=== PATIENT | female | born 1945 | race Caucasian/White ===

== ENCOUNTER 2023-11-25 20:33 | Inpatient (IN) | payer MEDICARE ==
[~2023-11-25] VITALS: Ht 157.5 cm; Wt 54.4 kg
[2023-11-25 22:01] LABS: BASOPHILS # (AUTO) 0.1 K/uL (0.0-0.2); BASOPHILS % (AUTO) 0.5 % (0.0-2.0); EOSINOPHILS # (AUTO) 0.1 K/uL (0.0-0.7); HEMATOCRIT 36 % (33-45); HEMOGLOBIN 11.8 g/dL (11.5-14.8); LYMPHOCYTES # (AUTO) 1.2 K/uL (0.8-4.8); LYMPHOCYTES % (AUTO) 10.9 % (20.0-44.0); MEAN CORPUSCULAR HEMOGLOBIN 31 PG (26.0-33.0); MEAN CORPUSCULAR HGB CONC 33 g/dl (31.0-36.0); MEAN CORPUSCULAR VOLUME 95 fL (82-100); MONOCYTES # (AUTO) 0.8 K/uL (0.1-1.30); MONOCYTES % (AUTO) 7.3 % (2.0-12.0); NEUTROPHILS # (AUTO) 8.9 K/uL (1.8-8.9); NEUTROPHILS % (AUTO) 80.3 % (43.0-81.0); PLATELET COUNT (AUTO) 316 K/uL (150-450); RED BLOOD CELL COUNT(AUTO) 3.84 MIL/uL (4.0-5.2); RED CELL DISTRIBUTION WIDTH 13.5 % (11.5-15.0); WHITE BLOOD COUNT (AUTO) 11.1 K/uL (4.3-11.0)
[2023-11-25 22:12] LABS: CALCIUM, SERUM 9.2 mg/dL (8.5-10.1); CARBON DIOXIDE 21 mmol/L (21-32); CHLORIDE 104 mmol/L (98-107); CREATININE 1.3 mg/dL (0.6-1.3); GLUCOSE 99 mg/dL (74-106); POTASSIUM 4.5 mmol/L (3.5-5.1); SODIUM SERUM 135 mmol/L (136-145); UREA NITROGEN, BLOOD 37 mg/dL (7-18)
[2023-11-25 22:18] LABS: ALANINE AMINOTRANSFERASE 48 U/L (12-78); ALBUMIN 3.9 g/dL (3.4-5.0); ALKALINE PHOSPHATASE 112 U/L (46-116); ASPARTATE AMINOTRANSFERASE 34 U/L (15-37); BILIRUBIN,DIRECT 0.1 mg/dL (0.0-0.2); BILIRUBIN,TOTAL 0.2 mg/dL (0.2-1.0); TOTAL PROTEIN, SERUM 7.8 g/dL (6.4-8.2)
[2023-11-26] VITALS (8 sets, daily range): BP systolic 129–170; BP diastolic 58–105; TEMP 97.5–98.6; O2SAT 94–99
[2023-11-26] MEDS ORDERED: MAGNESIUM HYDROXIDE 30 ML UDC PO PRN
[2023-11-26] MEDS ORDERED: ACETAMINOPHEN 325 MG TABLET PO PRN
[2023-11-26] MEDS ORDERED: ONDANSETRON HCL/PF 4 MG/2 ML VIAL IVP PRN
[2023-11-26] MEDS ORDERED: MAG HYDROX/AL HYDROX/SIMETH 30 ML UDC PO PRN
[2023-11-26] MEDS ORDERED: Z GUARD REMEDY 4 OZ OINT TP PRN
[2023-11-26] MEDS ORDERED: TEMAZEPAM 15 MG CAPSULE PO PRN
[2023-11-26] MEDS ORDERED: HYDROCODONE/APAP 10/325MG TABLET PO PRN
[2023-11-26] MEDS: IV NS 0.9% 1,000 ML IV PRN ×2 (04:58→17:51)
[2023-11-26 06:52] LABS: BASOPHILS % (AUTO) 0.5 % (0.0-2.0); EOSINOPHILS # (AUTO) 0.1 K/uL (0.0-0.7); EOSINOPHILS % (AUTO) 1.2 % (0.0-6.0); HEMATOCRIT 29 % (33-45); HEMOGLOBIN 9.9 g/dL (11.5-14.8); LYMPHOCYTES # (AUTO) 1.2 K/uL (0.8-4.8); LYMPHOCYTES % (AUTO) 12.2 % (20.0-44.0); MEAN CORPUSCULAR HEMOGLOBIN 32 PG (26.0-33.0); MEAN CORPUSCULAR HGB CONC 34 g/dl (31.0-36.0); MEAN CORPUSCULAR VOLUME 94 fL (82-100); MONOCYTES # (AUTO) 1.2 K/uL (0.1-1.30); MONOCYTES % (AUTO) 12.2 % (2.0-12.0); NEUTROPHILS # (AUTO) 7.2 K/uL (1.8-8.9); NEUTROPHILS % (AUTO) 73.9 % (43.0-81.0); PLATELET COUNT (AUTO) 269 K/uL (150-450); RED BLOOD CELL COUNT(AUTO) 3.11 MIL/uL (4.0-5.2); WHITE BLOOD COUNT (AUTO) 9.8 K/uL (4.3-11.0)
[2023-11-26] MEDS: PANTOPRAZOLE 40 MG TABLET.DR PO SCH (07:25)
[2023-11-26 07:35] LABS: CALCIUM, SERUM 8.9 mg/dL (8.5-10.1); CARBON DIOXIDE 20 mmol/L (21-32); CHLORIDE 106 mmol/L (98-107); CREATININE 1.1 mg/dL (0.6-1.3); GLUCOSE 96 mg/dL (74-106); MAGNESIUM 1.7 mg/dL (1.8-2.4); PHOSPHORUS 3.5 mg/dL (2.5-4.9); POTASSIUM 4.1 mmol/L (3.5-5.1); SODIUM SERUM 139 mmol/L (136-145); UREA NITROGEN, BLOOD 34 mg/dL (7-18)
[2023-11-26 07:39] LABS: CHOLESTEROL 144 mg/dL (<200); HDL CHOLESTEROL 91 mg/dL (40-60); LDL 39 mg/dL (0-99); THYROID STIMULATING HORMONE 2.901 uIU/mL (0.358-3.74); TRIGLYCERIDES 42 mg/dL (30-150)
[2023-11-26] MEDS ORDERED: ATEN50TA PO (08:04)
[2023-11-26] MEDS ORDERED: SIMV-49 PO (08:04)
[2023-11-26] MEDS ORDERED: ALPR0.5T PO (08:04)
[2023-11-26] MEDS ORDERED: FLUO40CA8 PO (08:04)
[2023-11-26] MEDS ORDERED: IRBE150T28 PO (08:04)
[2023-11-26] MEDS: ATENOLOL 50 MG TABLET PO SCH ×2 (09:52→16:33)
[2023-11-26 10:08] LABS: THYROID STIMULATING HORMONE 2.709 uIU/mL (0.358-3.74)
[2023-11-26] MEDS ORDERED: MAGNESIUM OXIDE 400 MG TABLET PO ONE (11:30)
[2023-11-26] MEDS: HYDROCODONE/APAP 5/325MG TABLET PO PRN (15:10)
[2023-11-26] MEDS: LOSARTAN POTASSIUM 50 MG TABLET PO SCH (16:33)
[2023-11-26] MEDS: SIMVASTATIN 20 MG TABLET PO SCH (17:39)
[2023-11-26] MEDS ORDERED: SIMVASTATIN 40 MG TABLET PO SCH (18:00)
[2023-11-27] VITALS: BP 163/61; TEMP 97.7; O2SAT 98
[2023-11-27] MEDS: HYDROCODONE/APAP 5/325MG TABLET PO PRN ×2 (00:44→15:46)
[2023-11-27 04:00] VITALS: BP 187/65; TEMP 97.7; O2SAT 98
[2023-11-27] MEDS: LOSARTAN POTASSIUM 50 MG TABLET PO SCH (04:43)
[2023-11-27 07:24] LABS: BASOPHILS # (AUTO) 0.1 K/uL (0.0-0.2); BASOPHILS % (AUTO) 0.8 % (0.0-2.0); EOSINOPHILS # (AUTO) 0.2 K/uL (0.0-0.7); EOSINOPHILS % (AUTO) 3.3 % (0.0-6.0); HEMATOCRIT 27 % (33-45); LYMPHOCYTES # (AUTO) 1.3 K/uL (0.8-4.8); LYMPHOCYTES % (AUTO) 20.1 % (20.0-44.0); MEAN CORPUSCULAR HEMOGLOBIN 32 PG (26.0-33.0); MEAN CORPUSCULAR HGB CONC 33 g/dl (31.0-36.0); MEAN CORPUSCULAR VOLUME 94 fL (82-100); MONOCYTES # (AUTO) 0.9 K/uL (0.1-1.30); MONOCYTES % (AUTO) 13.9 % (2.0-12.0); NEUTROPHILS % (AUTO) 61.9 % (43.0-81.0); PLATELET COUNT (AUTO) 250 K/uL (150-450); RED BLOOD CELL COUNT(AUTO) 2.87 MIL/uL (4.0-5.2); RED CELL DISTRIBUTION WIDTH 13.4 % (11.5-15.0); WHITE BLOOD COUNT (AUTO) 6.5 K/uL (4.3-11.0)
[2023-11-27 07:49] LABS: CALCIUM, SERUM 8.9 mg/dL (8.5-10.1); CREATININE 1.2 mg/dL (0.6-1.3); MAGNESIUM 1.9 mg/dL (1.8-2.4); POTASSIUM 4.1 mmol/L (3.5-5.1)
[2023-11-27 08:00] VITALS: BP 187/61; TEMP 98.4; O2SAT 97
[2023-11-27] MEDS: PANTOPRAZOLE 40 MG TABLET.DR PO SCH ×2 (08:29→08:54)
[2023-11-27] MEDS: VALSARTAN 80 MG TABLET PO SCH ×2 (08:46→08:55)
[2023-11-27] MEDS: ATENOLOL 50 MG TABLET PO SCH ×4 (08:47→17:07)
[2023-11-27] MEDS: FLUOXETINE HCL 20 MG CAPSULE PO SCH (08:55)
[2023-11-27] MEDS ORDERED: AMLODIPINE BESYLATE 5 MG TABLET PO SCH (09:00)
[2023-11-27] MEDS ORDERED: ALPRAZOLAM 0.5 MG TABLET PO ONE (13:00)
[2023-11-27] MEDS ORDERED: AMLODIPINE BESYLATE 5 MG TABLET PO ONE (14:00)
[2023-11-27] MEDS ORDERED: hydrALAZINE HCL 25 MG TABLET PO PRN (14:00)
[2023-11-27 16:00] VITALS: BP 133/60; TEMP 97.5; O2SAT 95
[2023-11-27] MEDS: SIMVASTATIN 20 MG TABLET PO SCH (17:05)
[2023-11-27 20:00] VITALS: BP 135/71; TEMP 97.3; O2SAT 95
[2023-11-28] VITALS: BP 135/71; TEMP 97.3; O2SAT 95
[2023-11-28 07:23] LABS: BASOPHILS # (AUTO) 0.1 K/uL (0.0-0.2); BASOPHILS % (AUTO) 0.9 % (0.0-2.0); EOSINOPHILS # (AUTO) 0.3 K/uL (0.0-0.7); EOSINOPHILS % (AUTO) 4.1 % (0.0-6.0); HEMATOCRIT 29 % (33-45); HEMOGLOBIN 9.5 g/dL (11.5-14.8); LYMPHOCYTES # (AUTO) 1.2 K/uL (0.8-4.8); LYMPHOCYTES % (AUTO) 18.4 % (20.0-44.0); MEAN CORPUSCULAR HEMOGLOBIN 31 PG (26.0-33.0); MEAN CORPUSCULAR HGB CONC 33 g/dl (31.0-36.0); MEAN CORPUSCULAR VOLUME 95 fL (82-100); MONOCYTES # (AUTO) 0.9 K/uL (0.1-1.30); MONOCYTES % (AUTO) 14.5 % (2.0-12.0); NEUTROPHILS % (AUTO) 62.1 % (43.0-81.0); PLATELET COUNT (AUTO) 260 K/uL (150-450); RED BLOOD CELL COUNT(AUTO) 3.02 MIL/uL (4.0-5.2); RED CELL DISTRIBUTION WIDTH 13.3 % (11.5-15.0); WHITE BLOOD COUNT (AUTO) 6.5 K/uL (4.3-11.0)
[2023-11-28] MEDS: HYDROCODONE/APAP 5/325MG TABLET PO PRN ×2 (07:50→16:20)
[2023-11-28] MEDS: PANTOPRAZOLE 40 MG TABLET.DR PO SCH (07:50)
[2023-11-28 08:01] LABS: CALCIUM, SERUM 9.2 mg/dL (8.5-10.1); CREATININE 1.2 mg/dL (0.6-1.3); MAGNESIUM 1.8 mg/dL (1.8-2.4); PHOSPHORUS 2.9 mg/dL (2.5-4.9); POTASSIUM 3.7 mmol/L (3.5-5.1)
[2023-11-28 08:24] VITALS: BP 148/58; TEMP 97.9; O2SAT 98
[2023-11-28] MEDS ORDERED: VALSARTAN 80 MG TABLET PO SCH (09:00)
[2023-11-28] MEDS: ALPRAZOLAM 0.5 MG TABLET PO SCH ×2 (09:00→12:44)
[2023-11-28] MEDS ORDERED: AMLODIPINE BESYLATE 5 MG TABLET PO SCH (09:00)
[2023-11-28] MEDS: ATENOLOL 50 MG TABLET PO SCH ×2 (09:18→16:20)
[2023-11-28] MEDS: FLUOXETINE HCL 20 MG CAPSULE PO SCH (09:18)
[2023-11-28] MEDS ORDERED: VALS80TA31 PO (15:08)
[2023-11-28] MEDS ORDERED: AMLO-212 PO (15:08)
[2023-11-28 16:03] VITALS: BP 160/67; TEMP 99.1; O2SAT 98
[2023-11-28 16:20] VITALS: BP 160/67
== END 2023-11-28 17:03 | disposition home or self-care (01) | DRG 641 ==
LOC: ER 20:38 → TELE 23:22 → MED 11-28 11:17
PROVIDERS: ADMIT Nurse Practitioner Acute Care; ATTEND Student in an Organized Health Care Education/Training Program
DX: E86.0 Dehydration (principal); N17.9 Acute kidney failure, unspecified; R26.9 Unspecified abnormalities of gait and mobility; E87.1 Hypo-osmolality and hyponatremia; S01.01XA Laceration without foreign body of scalp, initial encounter; W18.30XA Fall on same level, unspecified, initial encounter; M16.11 Unilateral primary osteoarthritis, right hip; Y92.9 Unspecified place or not applicable; R29.6 Repeated falls; I10 Essential (primary) hypertension; E11.9 Type 2 diabetes mellitus without complications; Z79.899 Other long term (current) drug therapy; Z87.891 Personal history of nicotine dependence; Z79.84 Long term (current) use of oral hypoglycemic drugs; E86.1 Hypovolemia; F41.9 Anxiety disorder, unspecified; F32.A Depression, unspecified; E83.42 Hypomagnesemia; E86.9 Volume depletion, unspecified
CPT/HCPCS: 36415; 70450-TC; 71045-TC; 72125-TC; 72170-TC; 73090-TC; 80048-TC; 80061-TC; 80076-TC; 82550-TC; 82728-TC; 83540-TC; 83735-TC; 84100-TC; 84439-TC; 84443-TC; 84484-TC; 85025-TC; 93307-TC; 97110-TC; 97116-TC; 97530-TC; A6403; G0378; J7030

== ENCOUNTER 2023-12-02 16:57 | Emergency (ER) | payer MEDICARE ==
[~2023-12-02] VITALS: Ht 160 cm; Wt 63.5 kg
[~2023-12-02 16:57] MED LIST: ALPR0.5T PO; AMLO-212 PO; ATEN50TA PO; FLUO40CA8 PO; SIMV-49 PO; VALS80TA31 PO
[2023-12-02 17:36] VITALS: BP 150/77; TEMP 98.8
[2023-12-02] MEDS ORDERED: AMLO-212 PO (17:55)
[2023-12-02 18:02] VITALS: O2SAT 98
== END 2023-12-02 18:02 | disposition home or self-care (01) ==
LOC: ER 17:06
DX: S01.01XD Laceration without foreign body of scalp, subsequent encounter (principal); I10 Essential (primary) hypertension; Z79.899 Other long term (current) drug therapy; Z60.2 Problems related to living alone; X58.XXXD Exposure to other specified factors, subsequent encounter

== ENCOUNTER 2025-02-01 17:07 | Emergency (ER) | payer MEDICARE, OTHER ==
[~2025-02-01] VITALS: Ht 167.6 cm; Wt 65.8 kg
[2025-02-01 17:39] LABS: BASOPHILS # (AUTO) 0.1 K/uL (0.0-0.2); EOSINOPHILS # (AUTO) 0.1 K/uL (0.0-0.7); EOSINOPHILS % (AUTO) 1.6 % (0.0-6.0); HEMATOCRIT 34 % (33-45); HEMOGLOBIN 11.5 g/dL (11.5-14.8); LYMPHOCYTES # (AUTO) 1.9 K/uL (0.8-4.8); MEAN CORPUSCULAR HEMOGLOBIN 31 PG (26.0-33.0); MEAN CORPUSCULAR HGB CONC 34 g/dl (31.0-36.0); MEAN CORPUSCULAR VOLUME 92 fL (82-100); MONOCYTES # (AUTO) 0.6 K/uL (0.1-1.30); MONOCYTES % (AUTO) 7.1 % (2.0-12.0); NEUTROPHILS # (AUTO) 5.3 K/uL (1.8-8.9); NEUTROPHILS % (AUTO) 66.3 % (43.0-81.0); PLATELET COUNT (AUTO) 366 K/uL (150-450); RED BLOOD CELL COUNT(AUTO) 3.74 MIL/uL (4.0-5.2); RED CELL DISTRIBUTION WIDTH 13.2 % (11.5-15.0)
[2025-02-01 17:53] LABS: CARBON DIOXIDE 20 mmol/L (21-32); CHLORIDE 106 mmol/L (98-107); CREATININE 2.1 mg/dL (0.6-1.3); GLUCOSE 98 mg/dL (74-106); POTASSIUM 4.6 mmol/L (3.5-5.1); SODIUM SERUM 141 mmol/L (136-145); UREA NITROGEN, BLOOD 60 mg/dL (7-18)
[2025-02-01 17:59] LABS: ALANINE AMINOTRANSFERASE 37 U/L (12-78); ALBUMIN 3.8 g/dL (3.4-5.0); ALCOHOL, BLOOD 279 mg/dL (0-10); ALKALINE PHOSPHATASE 95 U/L (46-116); ASPARTATE AMINOTRANSFERASE 31 U/L (15-37); BILIRUBIN,DIRECT 0.1 mg/dL (0.0-0.2); BILIRUBIN,TOTAL 0.3 mg/dL (0.2-1.0); TOTAL PROTEIN, SERUM 7.2 g/dL (6.4-8.2)
[2025-02-01 18:01] LABS: ACETAMINOPHEN <10 ug/ml (10-30); SALICYLATE 1.1 mg/dL (2.8-20.0)
[2025-02-01] MEDS: IV NS 0.9% 1,000 ML BAG IV ONE (20:00)
[2025-02-01 23:50] VITALS: BP 97/58; TEMP 97.9; O2SAT 100
== END 2025-02-01 23:52 | disposition home or self-care (01) ==
LOC: ER 17:10
DX: S09.90XA Unspecified injury of head, initial encounter (principal); M25.531 Pain in right wrist; E11.9 Type 2 diabetes mellitus without complications; I10 Essential (primary) hypertension; E78.5 Hyperlipidemia, unspecified; F10.129 Alcohol abuse with intoxication, unspecified; R29.6 Repeated falls; Z91.048 Other nonmedicinal substance allergy status; Z79.899 Other long term (current) drug therapy; X58.XXXA Exposure to other specified factors, initial encounter; Y93.89 Activity, other specified; Y92.89 Other specified places as the place of occurrence of the external cause; Y99.8 Other external cause status; Y90.9 Presence of alcohol in blood, level not specified
CPT/HCPCS: 29125; 36415; 70450; 73110; 80048; 80076; 80143; 80320; 85025; 96360; 99284; J7030; G0480

== ENCOUNTER 2025-03-02 16:58 | Inpatient (IN) | payer OTHER ==
[~2025-03-02] VITALS: Ht 162.6 cm; Wt 56.7 kg
[2025-03-02] MEDS: IV NS 0.9% 1,000 ML BAG IV ONE ×2 (17:45→18:15)
[2025-03-02 17:48] LABS: BASOPHILS # (AUTO) 0.1 K/uL (0.0-0.2); BASOPHILS % (AUTO) 0.9 % (0.0-2.0); EOSINOPHILS # (AUTO) 0.2 K/uL (0.0-0.7); EOSINOPHILS % (AUTO) 3.6 % (0.0-6.0); HEMATOCRIT 29 % (33-45); HEMOGLOBIN 9.7 g/dL (11.5-14.8); LYMPHOCYTES # (AUTO) 1.6 K/uL (0.8-4.8); LYMPHOCYTES % (AUTO) 28.6 % (20.0-44.0); MEAN CORPUSCULAR HEMOGLOBIN 32 PG (26.0-33.0); MEAN CORPUSCULAR HGB CONC 34 g/dl (31.0-36.0); MEAN CORPUSCULAR VOLUME 94 fL (82-100); MONOCYTES # (AUTO) 0.9 K/uL (0.1-1.30); MONOCYTES % (AUTO) 14.9 % (2.0-12.0); PLATELET COUNT (AUTO) 273 K/uL (150-450); RED BLOOD CELL COUNT(AUTO) 3.07 MIL/uL (4.0-5.2); RED CELL DISTRIBUTION WIDTH 14.1 % (11.5-15.0); WHITE BLOOD COUNT (AUTO) 5.8 K/uL (4.3-11.0)
[2025-03-02 17:55] LABS: CALCIUM, SERUM 8.1 mg/dL (8.5-10.1); CARBON DIOXIDE 24 mmol/L (21-32); CHLORIDE 104 mmol/L (98-107); CREATININE 1.9 mg/dL (0.6-1.3); GLUCOSE 96 mg/dL (74-106); POTASSIUM 4.1 mmol/L (3.5-5.1); SODIUM SERUM 134 mmol/L (136-145); UREA NITROGEN, BLOOD 44 mg/dL (7-18)
[2025-03-02 18:01] LABS: ACETAMINOPHEN 137 ug/ml (10-30); ALANINE AMINOTRANSFERASE 20 U/L (12-78); ALCOHOL, BLOOD 122 mg/dL (0-10); ALKALINE PHOSPHATASE 95 U/L (46-116); ASPARTATE AMINOTRANSFERASE 16 U/L (15-37); BILIRUBIN,DIRECT 0.1 mg/dL (0.0-0.2); BILIRUBIN,TOTAL 0.3 mg/dL (0.2-1.0); TOTAL PROTEIN, SERUM 5.7 g/dL (6.4-8.2)
[2025-03-02 18:03] LABS: SALICYLATE 0.7 mg/dL (2.8-20.0)
[2025-03-02 18:03] LABS: AMPHETAMINE, URINE NEGATIVE (NEGATIVE); BARBITURATE, URINE NEGATIVE (NEGATIVE); BENZODIAZEPINE, URINE NEGATIVE (NEGATIVE); CANNABINOID, URINE NEGATIVE (NEGATIVE); COCCAINE, URINE NEGATIVE (NEGATIVE); OPIATE, URINE POSITIVE (NEGATIVE); PHENCYCLIDINE SCREEN,URINE NEGATIVE (NEGATIVE)
[2025-03-02] MEDS: NALOXONE HCL 0.4 MG/ML AMPUL IV ONE (18:48)
[2025-03-02] MEDS ORDERED: NALOXONE PREFILLED SYRINGE 2 MG/2 ML SYRINGE ONE (18:49)
[2025-03-02] MEDS: D5W IV ONE ×3 (19:00)
[2025-03-02] MEDS: ACETYLCYSTEINE IV ONE ×3 (19:00)
[2025-03-02 19:23] LABS: APPEARANCE,URINE CLEAR (CLEAR); BILIRUBIN,URINE Negative (NEGATIVE); BLOOD, URINE Negative Ery/uL (NEGATIVE); COLOR,URINE YELLOW (YELLOW); KETONES,URINE Negative (NEGATIVE); LEUKOCYTE ESTERASE ,URINE Moderate (NEGATIVE); PH,URINE 5.5 (5.0-8.0); PROTEIN,URINE 30 mg/dl (NEGATIVE); UGLUCOSE Negative (NEGATIVE); UROBILINOGEN,URINE 0.2 EU/dL (0.2)
[2025-03-02 19:24] LABS: ADD URINE CULTURE YES; BACTERIA,URINE Few /HPF (None Seen); NITRITE, URINE NEGATIVE (NEGATIVE); RBC,URINE 0-2 /HPF (0-2)
[2025-03-02] MEDS ORDERED: MAGNESIUM HYDROXIDE 30 ML UDC PO PRN (23:30)
[2025-03-02] MEDS ORDERED: Z GUARD REMEDY 4 OZ OINT TP PRN (23:30)
[2025-03-02] MEDS ORDERED: ONDANSETRON HCL/PF 4 MG/2 ML VIAL IVP PRN (23:30)
[2025-03-03] VITALS (23 sets, daily range): BP systolic 88–156; BP diastolic 38–103; TEMP 97.6–98; O2SAT 91–99
[2025-03-03 00:09] LABS: INR 1.17 (0.91-1.10); PROTHROMBIN TIME 12.3 SECS (9.2-11.1)
[2025-03-03] MEDS: IV NS 0.9% 1,000 ML IV PRN (02:15)
[2025-03-03] MEDS ORDERED: NALOXONE HCL 0.4 MG/ML AMPUL IV PRN (02:30)
[2025-03-03 04:34] LABS: BASOPHILS # (AUTO) 0.1 K/uL (0.0-0.2); BASOPHILS % (AUTO) 1.1 % (0.0-2.0); EOSINOPHILS # (AUTO) 0.1 K/uL (0.0-0.7); EOSINOPHILS % (AUTO) 2.8 % (0.0-6.0); HEMATOCRIT 29 % (33-45); HEMOGLOBIN 9.6 g/dL (11.5-14.8); LYMPHOCYTES # (AUTO) 1.5 K/uL (0.8-4.8); LYMPHOCYTES % (AUTO) 31.6 % (20.0-44.0); MEAN CORPUSCULAR HEMOGLOBIN 31 PG (26.0-33.0); MEAN CORPUSCULAR HGB CONC 34 g/dl (31.0-36.0); MEAN CORPUSCULAR VOLUME 93 fL (82-100); MONOCYTES # (AUTO) 0.7 K/uL (0.1-1.30); NEUTROPHILS # (AUTO) 2.4 K/uL (1.8-8.9); NEUTROPHILS % (AUTO) 50.5 % (43.0-81.0); PLATELET COUNT (AUTO) 251 K/uL (150-450); RED BLOOD CELL COUNT(AUTO) 3.06 MIL/uL (4.0-5.2); RED CELL DISTRIBUTION WIDTH 13.8 % (11.5-15.0); WHITE BLOOD COUNT (AUTO) 4.8 K/uL (4.3-11.0)
[2025-03-03 04:41] LABS: CALCIUM, SERUM 7.8 mg/dL (8.5-10.1); CREATININE 1.6 mg/dL (0.6-1.3); MAGNESIUM 1.5 mg/dL (1.8-2.4); PHOSPHORUS 4.8 mg/dL (2.5-4.9); POTASSIUM 3.9 mmol/L (3.5-5.1)
[2025-03-03 04:47] LABS: ALBUMIN 2.5 g/dL (3.4-5.0); BILIRUBIN,TOTAL 0.2 mg/dL (0.2-1.0); TOTAL PROTEIN, SERUM 5.2 g/dL (6.4-8.2)
[2025-03-03 04:54] LABS: THYROID STIMULATING HORMONE 2.5 uIU/mL (0.358-3.74)
[2025-03-03 05:06] LABS: BILIRUBIN,DIRECT 0.1 mg/dL (0.0-0.2)
[2025-03-03] MEDS: PANTOPRAZOLE 40 MG TABLET.DR PO SCH (08:38)
[2025-03-03] MEDS: HEPARIN SODIUM, PORCINE 5000 UNITS/1 ML VIAL SQ SCH (08:40)
[2025-03-03] MEDS: Magnesium 1GM/D5W 100ML PREMIX PIGGYBACK IV ONE (09:30)
[2025-03-03] MEDS: CEFTRIAXONE 1 G in IV D5W 50 ML IV SCH (10:55)
[2025-03-03] MEDS ORDERED: LORAZEPAM 1 MG TABLET PO PRN (13:00)
[2025-03-03 16:53] LABS: ACETAMINOPHEN < 10 ug/ml (10-30); ALANINE AMINOTRANSFERASE 19 U/L (12-78); ALBUMIN 2.5 g/dL (3.4-5.0); ALKALINE PHOSPHATASE 84 U/L (46-116); ASPARTATE AMINOTRANSFERASE 12 U/L (15-37); BILIRUBIN,DIRECT 0.1 mg/dL (0.0-0.2); BILIRUBIN,TOTAL 0.2 mg/dL (0.2-1.0); TOTAL PROTEIN, SERUM 5.3 g/dL (6.4-8.2)
[2025-03-03 17:02] LABS: INR 1.13 (0.91-1.10); PROTHROMBIN TIME 11.9 SECS (9.2-11.1)
[2025-03-04] VITALS (19 sets, daily range): BP systolic 92–156; BP diastolic 41–109; TEMP 98–98.2; O2SAT 91–100
[2025-03-04 04:42] LABS: INR 1.03 (0.91-1.10); PROTHROMBIN TIME 10.9 SECS (9.2-11.1)
[2025-03-04 04:47] LABS: ALBUMIN 2.6 g/dL (3.4-5.0); BILIRUBIN,DIRECT 0.1 mg/dL (0.0-0.2); BILIRUBIN,TOTAL 0.3 mg/dL (0.2-1.0); TOTAL PROTEIN, SERUM 5.3 g/dL (6.4-8.2)
[2025-03-04 09:00] LABS: BASOPHILS % (AUTO) 0.3 % (0.0-2.0); EOSINOPHILS # (AUTO) 0.1 K/uL (0.0-0.7); EOSINOPHILS % (AUTO) 0.9 % (0.0-6.0); HEMATOCRIT 29 % (33-45); HEMOGLOBIN 9.6 g/dL (11.5-14.8); LYMPHOCYTES # (AUTO) 0.9 K/uL (0.8-4.8); LYMPHOCYTES % (AUTO) 8.5 % (20.0-44.0); MEAN CORPUSCULAR HEMOGLOBIN 31 PG (26.0-33.0); MEAN CORPUSCULAR HGB CONC 33 g/dl (31.0-36.0); MEAN CORPUSCULAR VOLUME 95 fL (82-100); MONOCYTES % (AUTO) 9.3 % (2.0-12.0); NEUTROPHILS # (AUTO) 8.4 K/uL (1.8-8.9); PLATELET COUNT (AUTO) 263 K/uL (150-450); RED BLOOD CELL COUNT(AUTO) 3.08 MIL/uL (4.0-5.2); RED CELL DISTRIBUTION WIDTH 14.1 % (11.5-15.0); WHITE BLOOD COUNT (AUTO) 10.3 K/uL (4.3-11.0)
[2025-03-04] MEDS: MULTIVIT W/MINERALS 1 TAB TABLET PO SCH (09:01)
[2025-03-04] MEDS: THIAMINE HCL 100 MG TABLET PO SCH (09:01)
[2025-03-04 09:07] LABS: ALBUMIN 2.5 g/dL (3.4-5.0); BILIRUBIN,TOTAL 0.2 mg/dL (0.2-1.0); CALCIUM, SERUM 8.6 mg/dL (8.5-10.1); CREATININE 1.7 mg/dL (0.6-1.3); MAGNESIUM 2.2 mg/dL (1.8-2.4); PHOSPHORUS 5.1 mg/dL (2.5-4.9); POTASSIUM 3.9 mmol/L (3.5-5.1); TOTAL PROTEIN, SERUM 5.3 g/dL (6.4-8.2)
[2025-03-04] MEDS: OLANZAPINE 10 MG VIAL IM PRN (10:47)
[2025-03-04 12:26] LABS: THYROID STIMULATING HORMONE 2.35 uIU/mL (0.358-3.74)
[2025-03-05] VITALS: BP 126/53; TEMP 97.9; O2SAT 96
[2025-03-05 04:00] VITALS: BP 148/74; TEMP 97.8; O2SAT 96
[2025-03-05 07:08] LABS: CREATININE, URINE 32.8 MG/DL (30.0-125.0); URINE TOTAL PROTEIN 34.4 mg/dL (0-11.9)
[2025-03-05 07:16] LABS: APPEARANCE,URINE SLIGHTLY CLOUDY (CLEAR); BILIRUBIN,URINE NEGATIVE (NEGATIVE); BLOOD, URINE 3+ Ery/uL (NEGATIVE); COLOR,URINE YELLOW (YELLOW); KETONES,URINE TRACE mg/dL (NEGATIVE); LEUKOCYTE ESTERASE ,URINE 2+ (NEGATIVE); NITRITE, URINE NEGATIVE (NEGATIVE); PROTEIN,URINE NEGATIVE (NEGATIVE); UGLUCOSE NEGATIVE (NEGATIVE); UROBILINOGEN,URINE 0.2 EU/dL (0.2)
[2025-03-05 08:00] VITALS: BP 153/100; TEMP 97.7; O2SAT 96
[2025-03-05 08:11] LABS: ADD URINE CULTURE YES; BACTERIA,URINE 1+ /HPF (None Seen); RBC,URINE 51-80 /HPF (0-2)
[2025-03-05 09:09] LABS: EOSINOPHIL,URINE Few
[2025-03-05 16:00] VITALS: BP 170/86; TEMP 97.8; O2SAT 96
[2025-03-05] MEDS: hydrALAZINE HCL IV 20 MG VIAL IV PRN (16:24)
[2025-03-05 21:00] VITALS: BP 154/62; TEMP 99; O2SAT 95
[2025-03-06 04:00] VITALS: BP 136/73; TEMP 98.4; O2SAT 98
[2025-03-06 07:06] LABS: ALBUMIN 2.6 g/dL (3.4-5.0); BILIRUBIN,TOTAL 0.4 mg/dL (0.2-1.0); CALCIUM, SERUM 9.2 mg/dL (8.5-10.1); CREATININE 1.5 mg/dL (0.6-1.3); MAGNESIUM 1.9 mg/dL (1.8-2.4); PHOSPHORUS 3.7 mg/dL (2.5-4.9); POTASSIUM 3.8 mmol/L (3.5-5.1); TOTAL PROTEIN, SERUM 5.7 g/dL (6.4-8.2)
[2025-03-06 08:07] LABS: FOLIC ACID 6.7 ng/mL (>3.0)
[2025-03-06 08:13] LABS: BASOPHILS # (AUTO) 0.1 K/uL (0.0-0.2); BASOPHILS % (AUTO) 0.9 % (0.0-2.0); EOSINOPHILS # (AUTO) 0.2 K/uL (0.0-0.7); EOSINOPHILS % (AUTO) 3.3 % (0.0-6.0); HEMATOCRIT 28 % (33-45); HEMOGLOBIN 9.2 g/dL (11.5-14.8); LYMPHOCYTES # (AUTO) 1.3 K/uL (0.8-4.8); LYMPHOCYTES % (AUTO) 22.6 % (20.0-44.0); MEAN CORPUSCULAR HEMOGLOBIN 31 PG (26.0-33.0); MEAN CORPUSCULAR HGB CONC 33 g/dl (31.0-36.0); MEAN CORPUSCULAR VOLUME 96 fL (82-100); MONOCYTES # (AUTO) 0.7 K/uL (0.1-1.30); MONOCYTES % (AUTO) 12.8 % (2.0-12.0); NEUTROPHILS # (AUTO) 3.4 K/uL (1.8-8.9); NEUTROPHILS % (AUTO) 60.4 % (43.0-81.0); PLATELET COUNT (AUTO) 292 K/uL (150-450); RED BLOOD CELL COUNT(AUTO) 2.94 MIL/uL (4.0-5.2); RED CELL DISTRIBUTION WIDTH 14.4 % (11.5-15.0); WHITE BLOOD COUNT (AUTO) 5.7 K/uL (4.3-11.0)
[2025-03-06 08:25] VITALS: BP 155/88; TEMP 97; O2SAT 99
[2025-03-06] MEDS ORDERED: IV NS 0.9% 1,000 ML IV PRN (09:33)
[2025-03-06 12:22] VITALS: BP 155/88; TEMP 97.7; O2SAT 96
[2025-03-06 16:34] VITALS: BP 190/82; TEMP 98.4; O2SAT 96
[2025-03-06 18:05] VITALS: BP 194/86
[2025-03-06] MEDS ORDERED: PANT40TA49 MT (23:42)
[2025-03-06] MEDS ORDERED: THIA100T74 PO (23:42)
[2025-03-06] MEDS ORDERED: MULT-24 PO (23:47)
[2025-03-06] MEDS ORDERED: ALLA266C2 TP (23:47)
== END 2025-03-06 20:55 | DRG 917 ==
LOC: ER 17:00 → ICU 23:24 → TELE1 03-04 14:40 → MEDSG1 03-05 10:34 → MEDOV2 03-06 20:55
PROVIDERS: ADMIT Nurse Practitioner Family; ATTEND Nurse Practitioner Acute Care
DX: T39.1X2A Poisoning by 4-Aminophenol derivatives, intentional self-harm, initial encounter (principal); G92.8 Other toxic encephalopathy; N17.0 Acute kidney failure with tubular necrosis; E44.1 Mild protein-calorie malnutrition; E87.1 Hypo-osmolality and hyponatremia; F33.2 Major depressive disorder, recurrent severe without psychotic features; F13.20 Sedative, hypnotic or anxiolytic dependence, uncomplicated; E87.20 Acidosis, unspecified; F10.229 Alcohol dependence with intoxication, unspecified; Y90.6 Blood alcohol level of 120-199 mg/100 ml; D64.9 Anemia, unspecified; E78.5 Hyperlipidemia, unspecified; E83.42 Hypomagnesemia; E88.09 Other disorders of plasma-protein metabolism, not elsewhere classified; I10 Essential (primary) hypertension; Z87.891 Personal history of nicotine dependence; Z20.822 Contact with and (suspected) exposure to COVID-19; I95.9 Hypotension, unspecified; F39 Unspecified mood [affective] disorder; Z68.21 Body mass index [BMI] 21.0-21.9, adult; F41.9 Anxiety disorder, unspecified; Z73.6 Limitation of activities due to disability; E86.0 Dehydration; E83.9 Disorder of mineral metabolism, unspecified; Z91.51 Personal history of suicidal behavior; Y92.099 Unspecified place in other non-institutional residence as the place of occurrence of the external cause
CPT/HCPCS: 36415; 71045-TC; 80048-TC; 80053-TC; 80061-TC; 80076-TC; 81001; 82550-TC; 82570-TC; 82607-TC; 82962-TC; 83735-TC; 83921; 84100-TC; 84300-TC; 84425; 84443-TC; 85025-TC; 85610-TC; 87081-TC; 87086-TC; A4223; G0378; G0480; J0132; J0360; J0696; J1644; J2310; J3475; J3490; J7030; J7060; J7070

== ENCOUNTER 2025-03-06 18:23 | Inpatient (IN) | payer OTHER ==
[~2025-03-06] VITALS: Ht 157.5 cm; Wt 56.7 kg
[2025-03-06] MEDS ORDERED: ZOLPIDEM TARTRATE 5 MG TABLET PO PRN ×2 (21:30)
[2025-03-06] MEDS ORDERED: LORAZEPAM 0.5 MG TABLET PO PRN (21:30)
[2025-03-06] MEDS ORDERED: MAGNESIUM HYDROXIDE 30 ML UDC PO PRN (21:30)
[2025-03-06] MEDS ORDERED: MAG HYDROX/AL HYDROX/SIMETH 30 ML UDC PO PRN (21:30)
[2025-03-06] MEDS ORDERED: ACETAMINOPHEN 325 MG TABLET PO PRN (21:30)
[2025-03-06] MEDS: BLOOD SUGAR DIAGNOSTIC 1 EACH STRIP IN ONE (21:47)
[2025-03-06] MEDS: LORAZEPAM 1 MG TABLET PO PRN (22:16)
[2025-03-06 22:26] VITALS: BP 170/72; TEMP 98
[2025-03-06 23:29] VITALS: BP 166/71; TEMP 98.2; O2SAT 96
[2025-03-06] MEDS ORDERED: THIA100T74 PO (23:42)
[2025-03-06] MEDS ORDERED: PANT40TA49 MT (23:42)
[2025-03-06] MEDS ORDERED: MULT-24 PO (23:47)
[2025-03-06] MEDS ORDERED: ALLA266C2 TP (23:47)
[2025-03-07] MEDS: CLONIDINE HCL 0.1 MG TABLET PO PRN (00:33)
[2025-03-07 01:54] VITALS: BP 146/70; TEMP 97.8; O2SAT 97
[2025-03-07 08:00] VITALS: BP 171/84; TEMP 98.7; O2SAT 98
[2025-03-07] MEDS: PANTOPRAZOLE 40 MG TABLET.DR PO SCH (08:07)
[2025-03-07] MEDS: THIAMINE HCL 100 MG TABLET PO SCH (08:07)
[2025-03-07] MEDS: MULTIVITAMINS,THERAGRAN 1 UDTAB TABLET PO SCH (08:07)
[2025-03-07] MEDS ORDERED: TRAZODONE 50 MG TABLET PO PRN (09:30)
[2025-03-07 12:21] LABS: CHOLESTEROL 148 mg/dL (<200); HDL CHOLESTEROL 60 mg/dL (40-60); LDL 77 mg/dL (0-99); TRIGLYCERIDES 133 mg/dL (30-150)
[2025-03-07] MEDS: FLUOXETINE HCL 20 MG CAPSULE PO SCH (12:56)
[2025-03-07] MEDS: busPIRone 5 MG TABLET PO SCH (13:55)
[2025-03-07] MEDS ORDERED: AMLODIPINE BESYLATE 10 MG TABLET PO SCH (14:30)
[2025-03-07 16:00] VITALS: BP 146/81; TEMP 98.7; O2SAT 98
[2025-03-07] MEDS: AMLODIPINE BESYLATE 10 MG TABLET PO SCH (16:50)
[2025-03-07 20:02] VITALS: BP 176/81; TEMP 97.9; O2SAT 97
[2025-03-07 21:30] VITALS: BP 141/69; TEMP 98; O2SAT 98
[2025-03-07 23:16] LABS: CREATININE 1.4 mg/dL (0.6-1.3)
[2025-03-07 23:26] LABS: BILIRUBIN,TOTAL 0.5 mg/dL (0.2-1.0); CALCIUM, SERUM 9.7 mg/dL (8.5-10.1); CREATININE 1.5 mg/dL (0.6-1.3); POTASSIUM 3.8 mmol/L (3.5-5.1); TOTAL PROTEIN, SERUM 6.3 g/dL (6.4-8.2)
[2025-03-08] MEDS: hydrOXYzine PAMOATE 25 MG CAPSULE PO PRN (06:34)
[2025-03-08 08:00] VITALS: BP 163/75; TEMP 97.9; O2SAT 97
[2025-03-08 09:57] VITALS: BP 159/82
[2025-03-08 12:12] VITALS: BP 154/72
[2025-03-08 16:00] VITALS: BP 137/72; TEMP 98; O2SAT 96
[2025-03-08 20:00] VITALS: BP 131/75; TEMP 97.5; O2SAT 100
[2025-03-09 07:43] LABS: BASOPHILS # (AUTO) 0.1 K/uL (0.0-0.2); EOSINOPHILS # (AUTO) 0.3 K/uL (0.0-0.7); EOSINOPHILS % (AUTO) 5.5 % (0.0-6.0); HEMATOCRIT 29 % (33-45); HEMOGLOBIN 9.8 g/dL (11.5-14.8); LYMPHOCYTES # (AUTO) 1.1 K/uL (0.8-4.8); LYMPHOCYTES % (AUTO) 19.3 % (20.0-44.0); MEAN CORPUSCULAR HEMOGLOBIN 31 PG (26.0-33.0); MEAN CORPUSCULAR HGB CONC 34 g/dl (31.0-36.0); MEAN CORPUSCULAR VOLUME 92 fL (82-100); MONOCYTES # (AUTO) 0.8 K/uL (0.1-1.30); MONOCYTES % (AUTO) 14.2 % (2.0-12.0); NEUTROPHILS # (AUTO) 3.6 K/uL (1.8-8.9); PLATELET COUNT (AUTO) 328 K/uL (150-450); RED BLOOD CELL COUNT(AUTO) 3.15 MIL/uL (4.0-5.2); RED CELL DISTRIBUTION WIDTH 13.9 % (11.5-15.0); WHITE BLOOD COUNT (AUTO) 5.9 K/uL (4.3-11.0)
[2025-03-09 08:00] VITALS: BP 142/73; TEMP 97.8; O2SAT 100
[2025-03-09 08:06] LABS: BILIRUBIN,TOTAL 0.4 mg/dL (0.2-1.0); CALCIUM, SERUM 9.4 mg/dL (8.5-10.1); CREATININE 1.3 mg/dL (0.6-1.3); MAGNESIUM 1.8 mg/dL (1.8-2.4); PHOSPHORUS 3.4 mg/dL (2.5-4.9); POTASSIUM 3.6 mmol/L (3.5-5.1)
[2025-03-09 08:14] VITALS: BP 142/73
== END 2025-03-09 14:20 | disposition left against medical advice (07) | DRG 885 ==
LOC: GPS 18:23
PROVIDERS: ADMIT Psychiatry & Neurology Psychiatry; ATTEND Nurse Practitioner Acute Care
DX: F33.2 Major depressive disorder, recurrent severe without psychotic features (principal); N17.9 Acute kidney failure, unspecified; E44.1 Mild protein-calorie malnutrition; I10 Essential (primary) hypertension; D64.9 Anemia, unspecified; E11.9 Type 2 diabetes mellitus without complications; E78.5 Hyperlipidemia, unspecified; F41.9 Anxiety disorder, unspecified; Z87.891 Personal history of nicotine dependence; F29 Unspecified psychosis not due to a substance or known physiological condition; Z73.6 Limitation of activities due to disability; F19.10 Other psychoactive substance abuse, uncomplicated; F10.20 Alcohol dependence, uncomplicated; Z68.22 Body mass index [BMI] 22.0-22.9, adult; E83.9 Disorder of mineral metabolism, unspecified; Z91.51 Personal history of suicidal behavior
CPT/HCPCS: 36415; 80053-TC; 80061-TC; 82565-TC; 82962-TC; 83735-TC; 84100-TC; 85025-TC; 97110-TC; 97112-TC; 97116-TC; 97530-TC; Q0177